=== PATIENT | female | born 1970 | race Hispanic/Latino ===

== ENCOUNTER 2017-10-22 18:34 | Observation (INO) | payer OTHER, MEDICAID, SELFPAY | END 2017-10-24 10:20 | disposition home or self-care (01) | LOC: AC 12-04 16:43 | PROVIDERS: Admitting Provider Internal Medicine; Family Provider Family Medicine; PCP Family Medicine; Visit Provider Internal Medicine | DX: J45.901 Unspecified asthma with (acute) exacerbation (principal); J15.9 Unspecified bacterial pneumonia; J10.08 Influenza due to other identified influenza virus with other specified pneumonia; Z68.43 Body mass index [BMI] 50.0-59.9, adult; F32.9 Major depressive disorder, single episode, unspecified; R00.0 Tachycardia, unspecified; E66.01 Morbid (severe) obesity due to excess calories | CPT/HCPCS: 87400; 94640; G0378; J1650; J2920; J2930; J7614 ==